=== PATIENT | female | born 1955 | race Caucasian/White ===

== ENCOUNTER 2020-06-10 14:30 | Outpatient (RCR) | payer MEDICARE, SELFPAY ==
[2020-04-23 15:22] VITALS: BMI 31.9
[2020-04-23 15:23] VITALS: BMI 31.9
== END 2020-07-13 14:29 | disposition home or self-care (01) ==
LOC: ANHDMC 14:30
PROVIDERS: PCP Internal Medicine; Visit Provider Family Medicine
DX: E11.9 Type 2 diabetes mellitus without complications (principal); Z71.3 Dietary counseling and surveillance; Z71.89 Other specified counseling
CPT/HCPCS: 97802; G0108; G0109

== ENCOUNTER 2020-08-18 11:11 | Outpatient (RCR) | payer MEDICARE, SELFPAY | END 2020-08-18 13:25 | disposition home or self-care (01) | LOC: ANHDMC 11:11 | PROVIDERS: PCP Internal Medicine; Referring Provider Family Medicine; Visit Provider Family Medicine | DX: E11.9 Type 2 diabetes mellitus without complications (principal); Z71.89 Other specified counseling | CPT/HCPCS: G0108 ==

== ENCOUNTER → 2022-09-06 16:37 | Outpatient (CLI) | payer MEDICARE, SELFPAY ==
--- NOTE | ~2022-09-06 | XR_ITS ---
XR foot LT min 3V 09/06/2022 16:54 Indication: Left foot pain Procedure: 4 views left foot Comparison: No prior studies for comparison. Findings: Osteopenia. Lisfranc joint intact. There is mild polyarticular osteoarthritis. No fracture or traumatic malalignment. No significant soft tissue abnormality. Impression: 1: No acute bone or joint abnormality. Reviewed, dictated and finalized at location B. Impression: 1: No acute bone or joint abnormality.
== END ==
PROVIDERS: PCP Family Medicine; Visit Provider Family Medicine
DX: M79.672 Pain in left foot (principal)
CPT/HCPCS: 73630